=== PATIENT | male | born 1950 ===

== ENCOUNTER 2017-06-09 10:11 | Emergency (ER) | payer SELFPAY ==
[~2017-06-09] VITALS: Ht 175.3 cm; Wt 90.5 kg
[2017-06-09 10:13] VITALS: BP 119/60; PULSE 103; RESP 16; TEMP 100.8; O2SAT 97
[2017-06-09] MEDS ORDERED: PROM6.256 PO (12:42)
[2017-06-09] MEDS ORDERED: OSEL75 PO (12:42)
--- NOTE | 2017-06-09 12:42 | PD ---
HPI Chief Complaint: Cold / Flu Symptoms Time Seen by Provider: 12:35 Travel History International Travel<30 days: No Contact w/Intl Traveler<30days: No Traveled to known affect area: No History of Present Illness HPI This is a 67-year-old male who presents to the emergency department with cough, body aches, subjective fever and myalgias, constant, moderate severity, going on for 2 days, worsening. Patient has no history of pulmonary problems and does not smoke. PFSH Past Medical History Narrative Medical hyperlipidemia depression Social History Tobacco Use: No Allergies-Medications (Allergen,Severity, Reaction): Coded Allergies: No Known Allergies (Unverified , 06/09/17) Review of Systems Except as stated in HPI: all other systems reviewed are Neg Physical Exam Narrative GENERAL:Well appearing, no acute distress SKIN: Focused skin assessment warm and dry. HEAD: Atraumatic. Normocephalic. EYES: Pupils equal and round. No injection or drainage. ENT: Moist mucous membranes NECK: Trachea midline. CARDIOVASCULAR: Regular rate and rhythm. No murmur appreciated. RESPIRATORY: Clear to auscultation. Breath sounds equal bilaterally. GASTROINTESTINAL: Abdomen soft, non-tender, nondistended. MUSCULOSKELETAL: No obvious deformities. NEUROLOGICAL: Awake and alert. No obvious cranial nerve deficits. Moving all extremities. PSYCHIATRIC: Appropriate mood and affect; insight and judgment normal. Data Data Last Documented VS Vital Signs Date Time Temp Pulse Resp B/P (MAP) Pulse Ox O2 Delivery O2 Flow Rate FiO2 06/09/17 10:13 100.8 103 16 119/60 (79) 97 Orders Orders Influenzae A/B Antigen (06/09/17 11:18) [facility] Medical Decision Making Medical Screen Exam Complete: Yes Emergency Medical Condition: Yes Interpretation(s) Positive for influenza A Differential Diagnosis Influenza A, influenza B, viral syndrome, bronchitis, pneumonia Narrative Course This is a 67-year-old male who presents to the emergency department with signs and symptoms classic for the flu. He tested positive for influenza A. He is not hypoxic and he has a benign exam. I think he can be discharged with Tamiflu and cough suppressant. Diagnosis Primary Impression: Influenza Patient Instructions: General Instructions Additional Instructions: If you develop severe chest pain, shortness of breath, sweating, lightheadedness , dizziness or difficulty breathing return to the emergency department immediately. Followup with your primary care physician in 2-3 days if your symptoms are not resolved. Med/Other Pt SpecificInfo: Prescription(s) given Scripts Promethazine-Codeine Liq (Promethazine-Codeine Liq) 6.25-10 Mg/5 Ml Syrp 5 ML PO Q6H Y for COUGH AND/OR COLD SYMPTOMS, #60 ML 0 Refills Prov: Donna Beregr MD 06/09/17 Oseltamivir (Tamiflu) 75 Mg Cap 75 MG PO BID for Mgmt Viral Infection for 5 Days, #10 CAP 0 Refills Prov: Donna Berger MD 06/09/17 Disposition: 01 DISCHARGE HOME Condition: Stable Donna Berger MD Jun 09, 2017 12:42
== END 2017-06-09 13:41 | disposition home or self-care (01) ==
LOC: NEPD 10:11
DX: J10.1 Influenza due to other identified influenza virus with other respiratory manifestations (principal); E78.5 Hyperlipidemia, unspecified; F32.9 Major depressive disorder, single episode, unspecified
CPT/HCPCS: 87804; 99283